=== PATIENT | female | born 1945 | race Native Hawaiian/Other Pacific Islander ===

== ENCOUNTER 2017-04-05 16:25 | Emergency (ER) | payer OTHER ==
[~2017-04-05] VITALS: Ht 167.6 cm; Wt 84.4 kg
== END 2017-04-05 19:44 | disposition home or self-care (01) ==
LOC: ED 16:25
DX: S00.33XA Contusion of nose, initial encounter (principal); S00.83XA Contusion of other part of head, initial encounter; W18.39XA Other fall on same level, initial encounter; Y93.67 Activity, basketball; Y92.098 Other place in other non-institutional residence as the place of occurrence of the external cause
CPT/HCPCS: 36415; 99283